=== PATIENT | male | born 1980 | race Caucasian/White ===

== ENCOUNTER 2024-04-28 14:50 | Outpatient (CLI) | payer OTHER, SELFPAY | END 2024-04-28 14:51 | disposition home or self-care (01) | PROVIDERS: PCP Family Medicine; Visit Provider Family Medicine | DX: I10 Essential (primary) hypertension (principal); E66.09 Other obesity due to excess calories; M16.12 Unilateral primary osteoarthritis, left hip | CPT/HCPCS: 80048; 80061 ==

== ENCOUNTER 2024-06-08 16:23 | Outpatient (CLI) | payer OTHER, SELFPAY ==
--- OUTSIDE RECORDS SUMMARY | 2024-06-08 16:25 | XMS_ITS | Clinical Summary ---
Author Organization [facility] Address [place], [place] [address] Care Team Providers Care Logging Superintendent Name Role Phone Andi Mccartney MD Primary Care Provider Allergies No known active allergies Medications Medication Sig Dispensed Refills Start Date End Date Status multivitamin (MVI) tablet Take 1 tablet by mouth once daily. 0 11/03/2018 Active Active Problems Problem Noted Date Diagnosed Date No Significant Past Medical History 09/18/2019 Encounters Date Type Department Care Team Description 04/03/2024 Travel from Last 3 Months Immunizations Name Administration Dates Next Due Hepatitis A (Adult) 11/20/2005 Hepatitis B (Adult) 11/20/2005 Influenza, IIV3 (Age >=3 years) 06/25/2013,09/08 Tdap 09/18/2019,11/20/2005 Family History Medical History Relation Name Comments No Known Problems Brother No Known Problems Father No Known Problems Mother No Known Problems Sister Relation Name Status Comments Brother Father Mother Sister Social History Tobacco Use Types Packs/Day Years Used Date Smoking Tobacco: Never Smokeless Tobacco: Current Chew Tobacco Cessation:Ready to Q uit: Yes; Counseling Given: Yes Alcohol Use Standard Drinks/Week Comments Yes 0 (1 standard drink = 0.6 oz pur e alcohol) rare PHQ-2 Answer Date Recorded PHQ-2 Score 0 09/18/2019 Social Connections Answer Date Recorded Frequency of Communication with Friends and Fami ly Not on file 04/17/2024 Financial Resource Strain Answer Date R ecorded Difficulty of Paying Living Expenses Not on file 09/02/2021 Difficulty of Paying Living Expenses Not on file 09/02/2021 Sex and Gender Information Value Date Recorded Sex Assigned at Not on file Gender Identity Not on file Sexual Orientation Not on file Obstetrics History Last Filed Vital Signs Vital Sign Reading Time Taken Comments Blood Pressure 143/80 01/02/2024 12:35 PM CDT Pulse 101 01/02/2024 12:35 PM CDT Temperature 36.6 ??C (97.8 ??F) 01/02/2024 12:35 PM C DT Respiratory Rate 20 01/02/2024 12:35 PM CDT Oxygen Saturation 96% 01/02/2024 12:35 PM CDT Inhaled Oxygen Concentration - - Weight 164 kg (361 lb 8 oz) 01/02/2024 12:35 PM CDT Height 193 cm (6' 4) 09/18/2019 10:05 AM NURSE EXTERN Body Mass Index 44 09/18/2019 10:05 AM NURSE EXTERN Plan of Treatment Health Maintenance Due Date Last Done Comments HIV for age 15-65 1994 Hepatitis C screening for ag e 18-79 1997 Lipids for age 35-44 2014 BMI (ht and wt on same day) for age 18+ 09/18/2020 09/18/2019, 11/03/2018 Depression screening for age 12+ 09/18/2020 09/18/2019 COVID-19 vaccine series ( season) 2024 08/31/2021, 01/05/2021, 12/08/2020 Influenza for age 9-49 05/03/2024 3, 09/08/2012 Tetanus booster 09/18/2029 09/18/2019, 11/20/2005 Tdap Completed 09/18/2019, 11/20/2005 Pneumococcal series for age 6-64 Aged Out No longer eligible b ased on patient's age to complete this topic Care Teams Logging Superintendent Relationship Specialty Start Date End Date Andi Mccartney MD [address] [facility] [address] PCP - General Family Practice 11/03/18
== END 2024-06-08 16:24 | disposition home or self-care (01) ==
LOC: FBOREF 16:23
PROVIDERS: PCP Family Medicine; Visit Provider Family Medicine
DX: Z01.818 Encounter for other preprocedural examination (principal)
CPT/HCPCS: 85025

== ENCOUNTER 2024-06-24 06:06 | Day surgery (SDC) | payer OTHER, SELFPAY ==
[2024-06-24] VITALS (18 sets, daily range): BP systolic 124–170; BP diastolic 68–99; PULSE 64–84; RESP 10–16; TEMP 36.1–36.6; O2SAT 93–98; BMI 43.4
--- OUTSIDE RECORDS SUMMARY | 2024-06-24 06:09 | XMS_ITS | Clinical Summary ---
Author Organization [employer] [facility] & [facility] Address [place], [place] [address] Care Team Providers Care Patient Access Representative Name Role Phone Andi Mccartney MD Primary [...] 193 cm (6' 4) 09/18/2019 10:05 AM CORPORATE LIBRARIAN Body Mass Index 44 09/18/2019 10:05 AM CORPORATE LIBRARIAN Plan of Treatment Health Maintenance Due Date [...] age to complete this topic Care Teams Patient Access Representative Relationship Specialty Start Date End Date Andi Mccartney MD [address] [place] [address] PCP - General Family Practice 11/03/18
[2024-06-24] MEDS: ACETAMINOPHEN 500 MG TABLET 1000 MG PO (06:30)
[2024-06-24] MEDS: LACTATED RINGERS 1000 ML 1,000 ML 100 ML IV (06:30)
[2024-06-24] MEDS: OXYCODONE (CR) 10 MG TAB.ER.12H PO (06:30)
[2024-06-24] MEDS: SODIUM CHLORIDE 0.9 % (FLUSH) 10 ML SYRINGE IVF (06:50)
--- NOTE | 2024-06-24 07:03 | SUR.PREOP ---
TIME?OUT:?0704 PT/RN/MDA?VERIFICATION?OF?SURGICAL?SITE,?PROCEDURE,?AND?CONSENT OBTAINED?PRIOR?TO?INVASIVE?PROCEDURE.
[2024-06-24] MEDS: MIDAZOLAM HCL 1 MG/ML inj IVP (07:05)
[2024-06-24] MEDS: fentaNYL 100 MCG/2 ML inj IVP (07:05)
--- NOTE | 2024-06-24 07:11 | W.PM.H&PU ---
History & Physical Update History & Physical Update H&P Reviewed and patient assessed: No changes noted
--- NOTE | 2024-06-24 07:15 | CRLHL7_ITS ---
For Patients: As a result of the Cures Act, medical imaging exams and procedure reports are released immediately into your electronic medical record. You may view this report before your referring provider. If you have questions, please contact your health care provider. Indication: Hip replacement surgery Technique: AP hip fluoroscopic image. Fluoroscopy time 53.1 seconds. Findings/Impression: Hardware from a left total hip arthroplasty is in satisfactory position. Dictated by Ifeanyi Macdonald MD @ 06/24/2024 4:28:16 PM (Electronically Signed)
[2024-06-24] MEDS: CEFAZOLIN 2 GM in 0.9 % SODIUM CHLORIDE Mini-bag 100 ML IVPB (07:42)
[2024-06-24] MEDS: TRANEXAMIC ACID 100 MG/ML INJ 1000 MG IV (07:55)
--- NOTE | 2024-06-24 08:05 | P.NB_ITS ---
Nerve Block Nerve Block Time Seen by Provider: 07:08 Date Seen: 06/24/24 Type of block requested by surgeon for post-operative analgesia: LUZ ELENA/LFCN Side: left Time out performed: Yes Verification of patient name: Yes Verification of date of : Yes Site marking: site marked Name of person performing procedure: Tommy Continuous monitoring Was continuous monitoring of O2 sat, B/P, chief librarian extension department, recorded every 15 minutes?: Yes Procedure Checklist: sterile prep, needles and gloves Ultrasound guided. Images saved: Yes Medications given in 5ml increments after negative aspiration: Ropivicaine %: 0.5 mL: 30 Needle gauge: 20 Precedex (mcg): 25 Patient tolerated procedure well: Yes Additional comments: Needle noted below psoas tendon needle noted adjacent to LFCN Block Charges Block Charge (with Pro Fee): Other Periph Nerve Block Use of Ultrasound Machine for Block: Yes- US Guidance/pain block
--- NOTE | 2024-06-24 08:06 | W.ANESCHARGE ---
Anesthesia Charges Start Date/Time Anesthesia Start Date: 06/24/24 Anesthesia Start Time: 07:25 Stop Date/Time Anesthesia Stop Date: 06/24/24 Anesthesia Stop Time: 10:43
--- NOTE | 2024-06-24 09:48 | P.ORPRC_ITS ---
Procedure Note Date of procedure: 06/24/24 Procedure: PREOPERATIVE DIAGNOSIS: 1. Left hip osteoarthritis, severe, primary 2. Morbid obesity-BMI 43.7 POSTOPERATIVE DIAGNOSIS: 1. Left hip osteoarthritis, severe, primary 2. Morbid obesity-BMI 43.7 PROCEDURE: 1. Left total hip arthroplasty-anterior approach (* of note, 40% added time for this case due to increased body mass of 43.7-morbid obesity-resulted in increased difficulty, need for longer/extended retractors, more assistants and increased surgical time/complexity.) 2. 01945 - intraoperative fluoroscopy up to 1 hour. SURGEON: Lc Sheikh MD. LEAD RAMP AGENT: Sourav Salcedo PA-C; JASON Kirby - Of note, a skilled executive chef assistant was critical for this case to aid in patient positioning, tissue retraction, limb manipulation/positioning, dislocation/relocation, patient safety, and closure. ANESTHESIA: General endotracheal anesthetic EBL: 800 mL IMPLANTS: DePuy J&J uncemented total hip Logan cup size 58, hole eliminator, +4 neutral liner Actis stem, high offset, size 9 +1.5 mm ceramic 36 mm head. COMPLICATIONS: None evident INDICATIONS: The patient is a pleasant 43-year-old male who has experienced severe left hip pain and difficulty bearing weight. Workup included x-rays which revealed severe osteoarthrosis in the hip. Given the deformity, the dysfunction, and the pain, as well as the failure of nonoperative management, recommendation was made for surgery. FINDINGS: Full-thickness chondral loss diffusely throughout the femoral head and acetabulum. Large osteophytes around the femoral head/neck junction and perimeter of the acetabulum. Mom large effusion upon entering the joint. Significant synovitis surrounding the hip capsule. DESCRIPTION OF PROCEDURE: Following a thorough discussion of risks, benefits, and alternatives consent was obtained and the left hip was marked. The patient was brought to the operating room and placed supine on the operating table. Induction of anesthesia was undertaken. 3 g IV Ancef and 1 g tranexamic acid was administered within 1 hr of incision preoperatively. Proper time-out was performed identifying proper patient, site, procedure. The operative extremity was prepped and draped in the appropriate sterile fashion using ChloraPrep after the patient was positioned on the [place] table with head in neutral alignment and all bony prominences well padded. C-arm fluoroscopic imaging was utilized to confirm proper pelvis rotation and position, and to get true AP films of both the contralateral left, and the affected left hip. This is for comparison. A longitudinal incision was made starting approximately 1 cm distal to the ASIS, and 3-4 cm lateral. Of note, the incision was longer than typical again because the patient's increased body mass and shear mass. The incision was extended distally aiming toward the lateral border the patella. Sharp incision through skin and bovie cautery through the subcutaneous tissue allowed identification of the TFL fascia. This was sharply divided, and the fascia bluntly released from the muscle fibers as we dissected medial. Upon coming to the medial border, we were able to retract the TFL laterally, and penetrated the deeper fascia and identify the crossing circumflex vessels. These were ligated/cauterized. The rectus was elevated from the capsule, and retractors placed laterally and medially along the femoral neck to help with visualization of the capsule. We then performed an inverted T capsulotomy. The capsule was tagged for later repair. Retractors were placed inside the capsule. The femoral neck was visualized after releasing medially down to the lesser trochanter, along the saddle laterally, and up onto the acetabulum. The femoral neck cut was made in line with our preoperative templating. The head was removed in a single piece, and sized. We turned our attention to acetabular preparation. Initially, the labrum was resected from around the perimeter, the pulvinar was excised, allowing us to visualize the false wall. We started the reaming with a 43 mm reamer. This was medialized down to the true wall. We then enlarged our reamers sequentially up to one size less than the selected cup size. We trialed at the same size and found it to have an excellent fit. The selected cup was then opened, inserted, and impacted in line with the goal of 40-45? of abduction, and 20-25? of anteversion. This was confirmed on C-arm fluoroscopic imaging to be in the appropriate/goal position. Once the cup was placed we placed a hole eliminator and a liner consistent with preop planning. Attention was turned to the femoral preparation. The limb was extended, externally rotated, and adducted. The posteromedial capsule was released, as retractors were placed allowing excellent access to the proximal femur. Initially a spreader box operator was followed by canal finder followed by various broaches. We broached sequentially up to size noted above, found it to have excellent rotational control, and trialing various heads and necks, revealed that appropriate neck offset, and the above noted head size provided the greatest stability, and rastafari of length, and offset. C-arm fluoroscopic imaging confirmed position of the stem, as well as leg lengths, which were compared with the pre procedure all fluoroscopic images. Trial implants were removed, the real femoral stem inserted, as was the ceramic head. After reducing, the leg was placed through range of motion and stability was confirmed anterior, posterior, and lateral. A 3 min Betadine soak was then performed, and thorough irrigation with normal saline followed. Closure of the capsule was performed with #1 PDS. Bleeding was confirmed to be controlled at this stage, and the TFL fascia was closed with #0 strata fix. Subcutaneous, and subcuticular closure was performed with 2-0 Vicryl and 4-0 Monocryl, respectively. Dressings were applied, and the patient was awoken from anesthesia and transferred the PACU in stable condition. A skilled executive chef assistant was critical for this case to aid in patient positioning, tissue retraction, proximal femur exposure, limb manipulation/positioning, dislocation/relocation, patient safety, and closure. * again, 40% added time for this case due to increased body mass of 43.7-morbid obesity (157 kg)-resulted in increased difficulty, need for longer/extended retractors, more assistants and increased surgical time/complexity. PLAN: 1. Weight bear as tolerated operative extremity. 2. 23 hr perioperative antibiotics. 3. Ice. 4. PT/OT consults for ambulation assistance/mobility education. 5. Social work consult for discharge planning. 6. DVT prophylaxis with at SCDs and Xarelto x5 days followed by aspirin for a total of 1 month..
--- NOTE | 2024-06-24 10:45 | CRLHL7_ITS ---
For Patients: As a result of the Cures Act, medical imaging exams and procedure reports are released immediately into your electronic medical record. You may view this report before your referring provider. If you have questions, please contact your health care provider. Indication: Postop Technique: AP hip centered pelvis and lateral view left hip Findings/Impression: Hardware from a left total hip arthroplasty is in satisfactory position. Bone alignment is normal. No sign of acute fracture. Postop changes are within normal limits. Dictated by Ifeanyi Macdonald MD @ 06/24/2024 4:33:53 PM (Electronically Signed)
--- NOTE | 2024-06-24 10:47 | W.ANESCHARGE ---
Anesthesia Charges Start Date/Time Anesthesia Start Date: 06/24/24 Anesthesia Start Time: 07:25 Stop Date/Time Anesthesia Stop Date: 06/24/24 Anesthesia Stop Time: 10:43
--- NOTE | 2024-06-24 11:15 | SUR.PHASEI ---
patient met discharge criteria per anesthesia
[2024-06-24] MEDS: OXYCODONE 5 MG TABLET PO (12:44)
== END 2024-06-24 14:14 | disposition home or self-care (01) ==
PROVIDERS: PCP Family Medicine; Visit Provider Orthopaedic Surgery Sports Medicine
PROC: (CPT 27130; principal; 2024-06-24 07:15)
DX: M16.12 Unilateral primary osteoarthritis, left hip (principal); G89.18 Other acute postprocedural pain; E66.01 Morbid (severe) obesity due to excess calories; Z68.41 Body mass index [BMI] 40.0-44.9, adult
CPT/HCPCS: 27130; 01214; 36415; 64450; 73501; 73502; 76000; 76942; 86850; 86900; 86901; 97110; 97116; 97161; 97165; A9270; C1776; J0330; J0690; J1100; J1171; J2250; J2405; J2704; J2795; J3010; J3475; J3490; J7120

== ENCOUNTER 2025-06-29 14:45 | Outpatient (CLI) | payer OTHER, SELFPAY | END 2025-06-29 14:46 | disposition home or self-care (01) | PROVIDERS: PCP Family Medicine; Visit Provider Family Medicine | DX: Z00.00 Encounter for general adult medical examination without abnormal findings (principal); E66.09 Other obesity due to excess calories; Z68.32 Body mass index [BMI] 32.0-32.9, adult | CPT/HCPCS: 80048; 80061 ==